=== PATIENT | female | born 1960 | race Caucasian/White ===

== ENCOUNTER 2017-01-24 06:28 | Day surgery (SDC) | payer BC ==
[2017-01-24 06:55] VITALS: BMI 23.0
[2017-01-24 07:13] VITALS: TEMP 97
[2017-01-24] MEDS ORDERED: Propofol 10 mg/ml Inj (20 ML) ONE (07:57)
[2017-01-24 08:50] VITALS: O2SAT 100
[2017-01-24 09:28] VITALS: BP 116/60; PULSE 60; RESP 15
== END 2017-01-24 09:20 | disposition home or self-care (01) ==
LOC: C.ENDO 06:28
PROVIDERS: ATTEND Internal Medicine Gastroenterology
DX: K29.50 Unspecified chronic gastritis without bleeding (principal); B96.81 Helicobacter pylori [H. pylori] as the cause of diseases classified elsewhere; K57.90 Diverticulosis of intestine, part unspecified, without perforation or abscess without bleeding; K64.8 Other hemorrhoids; K63.5 Polyp of colon
CPT/HCPCS: 43239; 45385; 88305; 88312; 88342; J2704